=== PATIENT | male | born 1965 | race Hispanic/Latino ===

== ENCOUNTER 2020-03-19 07:05 | Day surgery (SDC) | payer SELFPAY ==
--- NOTE | 2020-03-18 15:37 | RAD REPORT ---
EXAM DESCRIPTION: RAD - Chest Pa And Lat (2 Views) - 03/18/2020 3:31 pm CLINICAL HISTORY: PRE OP Chest pain. COMPARISON: No comparisons FINDINGS: Mild interstitial pulmonary opacities are present. The heart is normal in size. No displac ed fractures. IMPRESSION: Mild interstitial pulmonary opacities could indicate interstitial pneumonitis or mild in terstitial pulmonary edema.
[2020-03-18 16:26] LABS: Absolute Lymphocytes (CBC) 1.9 K/uL (0.7-4.9); Basophils % 0.7 % (0-1.3); Hematocrit 42.9 % (39.6-49.0); Lymphocytes % 25.9 % (15.3-44.8); MPV 9.1 fL (7.6-11.3); RBC Red Blood Cell Count 4.76 M/uL (4.33-5.43)
[2020-03-18 16:46] LABS: Potassium 4.7 mmol/L (3.5-5.1)
[~2020-03-19 07:05] MED LIST: CEFOXITIN/SWI 1gm 1 GM/10 ML SYR IVP SCH
[2020-03-19] MEDS ORDERED: CEFOXITIN/SWI 1gm 1 GM/10 ML SYR ONE (07:40)
[2020-03-19] MEDS: Ringers Lactate 1,000 ML IV ONE (07:45)
[2020-03-19] MEDS ORDERED: propofoL 200 MG/20 ML VIAL IV ONE (08:20)
[2020-03-19] MEDS ORDERED: FENTANYL CITR 100 MCG/2 ML ONE (08:20)
[2020-03-19] MEDS ORDERED: MIDAZOLAM HCL 2 MG/2 ML INJ ONE (08:20)
[2020-03-19] MEDS ORDERED: dexAMETHasone 10 MG/ML VIAL ONE (08:20)
[2020-03-19] MEDS ORDERED: LIDOCAINE 2% MPF 5 ML VIAL ONE (08:21)
[2020-03-19] MEDS ORDERED: ONDANSETRON 4 MG/2 ML VIAL ONE (08:21)
[2020-03-19] MEDS ORDERED: KETOROLAC 30 MG/ML INJ ONE (08:21)
[2020-03-19] MEDS ORDERED: ROCURONIUM 50 MG/5 ML VIAL IV ONE (08:21)
--- NOTE | 2020-03-19 08:41 | EKG ---
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
[2020-03-19] MEDS ORDERED: KETAMINE HCL 500 MG/5 ML VIAL ONE (08:51)
[2020-03-19] MEDS ORDERED: BACITRACIN OINTMENT 15 GM TUBE TOP ONE (09:18)
[2020-03-19 09:49] VITALS: O2SAT 100
[2020-03-19] MEDS ORDERED: HYDROCODONE/APAP 7.5/325 MG TAB ONE (10:31)
--- NOTE | 2020-03-19 11:33 | OP ---
Date of Procedure: 03/19/2020 Surgeon: Bandar Vincent MD [employer] Specialist: None. Preoperative Diagnosis: Thrombosed hemorrhoids complex. Postoperative Diagnosis: Thrombosed hemorrhoids complex. Procedure: Exam under anesthesia, rigid proctoscopy, and hemorrhoidectomy x2. Estimated Blood Loss: Minimal. Specimen: Thrombosed hemorrhoids x2. Findings: As above. Anesthesia: General. Complications: None. The patient tolerated the procedure in stable condition, taken to Recovery in good general condition. Procedure In Detail: The patient was brought to the OR and placed in supine position. General anest hesia was begun. The patient was placed in the lithotomy position. Prepped and draped in the usual sterile fashion. Exam under anesthesia revealed a large right thrombosed hemorrhoid with multiple ul cerated areas with clots visible and then on the left side as well but not as severe. This included external and internal hemorrhoids. Rigid proctoscopy did not show any other evidence of disease. Diggs bsequently Harmonic Scalpel was used to excise both sides of the hemorrhoids, right lateral and left lateral, sent to Pathology. Bleeding was controlled with cautery. Marcaine 0.5% was infiltrated loc ally for postop pain control and rectal packing consisting of Gel-Foam, Surgicel and Vaseline gauze w ere placed in the anal canal. Sterile dressing was applied. Patient was awakened and taken to [facility] in good general condition. Discharge Note: The patient will go to Day Surgery and home when stable. Disposition: Home. Condition: Stable. Discharge Instructions: Resume home medications and diet. Activity as tolerated. No heavy lifting. Sitz baths q.i.d. High-fiber diet. Metamucil 1 tablespoon p.o. t.i.d. with water. Colace 100 mg p.o. b.i.d., nitroglycerin, lidocaine as ordered and [place] 7.5, 1 tablet p.o. q.4 p.r.n. pain. Follo w up in my office in 2 week. Call for appointment. /MODBlair Voice ID: [id number] Report ID: [id number]
[2020-03-19 13:04] VITALS: TEMP 96.2
[2020-03-19 13:05] VITALS: BP 138/79
== END 2020-03-19 10:55 | disposition home or self-care (01) ==
LOC: OR 07:05
PROVIDERS: ATTEND Surgery
PROC: 06BY3ZC Excision of Hemorrhoidal Plexus, Percutaneous Approach (ICD-10-PCS; principal; 2020-03-19 08:00)
DX: K64.5 Perianal venous thrombosis (principal); K64.8 Other hemorrhoids; K64.4 Residual hemorrhoidal skin tags; U07.1 COVID-19; J98.4 Other disorders of lung; R00.1 Bradycardia, unspecified
CPT/HCPCS: 36415; 71046; 80048; 85025; 88304; 93005; J1100; J2250; J2405; J2704; J3010; J7120; U0002